=== PATIENT | female | born 1975 | race Two or more races ===

== ENCOUNTER 2021-06-22 19:02 | Emergency (ER) | payer OTHER ==
[~2021-06-22] VITALS: Ht 165.1 cm; Wt 81.6 kg
[2021-06-22] MEDS ORDERED: KETOROLAC TROMETH 60MG/2ML VIAL IM ONE (21:15)
[2021-06-23] VITALS: BP 131/83
== END 2021-06-22 22:44 | disposition home or self-care (01) ==
LOC: ER 19:02
DX: S83.8X1A Sprain of other specified parts of right knee, initial encounter (principal); M54.9 Dorsalgia, unspecified; G89.29 Other chronic pain; Z04.2 Encounter for examination and observation following work accident; W51.XXXA Accidental striking against or bumped into by another person, initial encounter; Y93.89 Activity, other specified; Y92.89 Other specified places as the place of occurrence of the external cause; Y99.8 Other external cause status
CPT/HCPCS: 73562; 96372; 99283; J1885